=== PATIENT | female | born 2000 | race Caucasian/White ===

== ENCOUNTER 2018-05-02 17:37 | Emergency (ER) | payer MEDICAID ==
[~2018-05-02] VITALS: Ht 160 cm; Wt 71.7 kg
[2018-05-02 17:51] VITALS: Ht 160 cm; Wt 71.7 kg
[2018-05-02 20:22] LABS: microscopic required? NO
[2018-05-02 20:31] LABS: UA SPECIFIC GRAVITY 1.015 (1.005-1.035); urine erythrocyte NEGATIVE (NEGATIVE)
[2018-05-02 20:57] LABS: BASOPHIL % 0.4 % (0-2); PLATELET COUNT 292 x10^3mcL (130-400)
[2018-05-02 20:59] LABS: RED CELL DISTRIBUTION WIDTH 17.4 % (11.5-14.5)
[2018-05-02 22:39] VITALS: BP 120/74
== END 2018-05-02 22:39 | disposition home or self-care (01) ==
LOC: ED 17:37
PROVIDERS: Emergency Medicine
DX: O20.0 Threatened abortion (principal); R10.30 Lower abdominal pain, unspecified
CPT/HCPCS: 36415

== ENCOUNTER 2018-06-26 00:06 | Emergency (ER) | payer MEDICAID ==
[~2018-06-26] VITALS: Ht 157.5 cm; Wt 73.0 kg
[2018-06-26 00:10] VITALS: Ht 157.5 cm; Wt 73.0 kg
[2018-06-26 01:28] LABS: BASOPHIL % 0.5 % (0-2); PLATELET COUNT 341 x10^3mcL (130-400)
[2018-06-26 02:18] LABS: ALBUMIN 3.5 g/dL (3.4-5.0); ALKALINE PHOSPHATASE 71 U/L (46-116); ALT/SGPT 20 U/L (14-59); AMYLASE 59 U/L (25-115); AST/SGOT 12 U/L (15-37); BILIRUBIN TOTAL 0.1 mg/dL (0.20-1.00); LIPASE 90 IU/L (73-393); TOTAL PROTEIN, SERUM 7.7 g/dL (6.4-8.2)
[2018-06-26 02:34] LABS: CALCIUM 8.2 mg/dL (8.5-10.1); CARBON DIOXIDE 22.2 mmol/L (21-32); CHLORIDE SERUM 105 mmol/L (98-107); CREATININE SERUM 0.6 mg/dL (0.6-1.0); GFR1 > 60 mL/min; GLUCOSE SERUM 92 mg/dL (74-106); POTASSIUM SERUM 3.6 mmol/L (3.5-5.1); SODIUM SERUM 139 mmol/L (136-145)
[2018-06-26 02:53] VITALS: BP 111/73
== END 2018-06-26 03:18 | disposition home or self-care (01) ==
LOC: ED 00:06
PROVIDERS: Specialist
DX: N83.8 Other noninflammatory disorders of ovary, fallopian tube and broad ligament (principal)
CPT/HCPCS: J1885; J7030; Q0092

== ENCOUNTER 2018-08-07 16:01 | Emergency (ER) | payer MEDICAID ==
[~2018-08-07] VITALS: Ht 160 cm; Wt 73.5 kg
[2018-08-07 16:08] VITALS: BP 133/83; Ht 160 cm; Wt 73.5 kg
== END 2018-08-07 16:58 | disposition left against medical advice (07) ==
LOC: ED 16:01
DX: Z53.21 Procedure and treatment not carried out due to patient leaving prior to being seen by health care provider (principal)

== ENCOUNTER 2018-11-14 02:41 | Emergency (ER) | payer MEDICAID ==
[~2018-11-14] VITALS: Ht 160 cm; Wt 77.1 kg
[2018-11-14 02:45] VITALS: Ht 160 cm; Wt 77.1 kg
[2018-11-14 03:45] VITALS: BP 128/68
== END 2018-11-14 03:45 | disposition home or self-care (01) ==
LOC: ED 02:41
DX: N30.91 Cystitis, unspecified with hematuria (principal); B37.9 Candidiasis, unspecified; N39.0 Urinary tract infection, site not specified

== ENCOUNTER 2019-01-14 01:23 | Emergency (ER) | payer MEDICAID ==
[~2019-01-14] VITALS: Ht 160 cm; Wt 78.5 kg
[2019-01-14 02:49] LABS: CALCIUM 8.3 mg/dL (8.5-10.1); CARBON DIOXIDE 25.9 mmol/L (21-32); CHLORIDE SERUM 106 mmol/L (98-107); CREATININE SERUM 0.7 mg/dL (0.6-1.0); GFR1 > 60 mL/min; GLUCOSE SERUM 106 mg/dL (74-106); POTASSIUM SERUM 3.6 mmol/L (3.5-5.1); SODIUM SERUM 139 mmol/L (136-145)
[2019-01-14 02:51] LABS: BASOPHIL % 0.3 % (0-2); PLATELET COUNT 250 x10^3mcL (130-400); RED CELL DISTRIBUTION WIDTH 16.5 % (11.5-14.5)
[2019-01-14 02:53] LABS: ALBUMIN 3.5 g/dL (3.4-5.0); ALKALINE PHOSPHATASE 75 U/L (46-116); ALT/SGPT 22 U/L (14-59); AST/SGOT 15 U/L (15-37); BILIRUBIN TOTAL 0.13 mg/dL (0.20-1.00); LIPASE 76 IU/L (73-393); TOTAL PROTEIN, SERUM 6.8 g/dL (6.4-8.2)
[2019-01-14 04:16] VITALS: BP 117/77
== END 2019-01-14 04:16 | disposition home or self-care (01) ==
LOC: ED 01:23
PROVIDERS: Emergency Medicine
DX: R10.2 Pelvic and perineal pain (principal)
CPT/HCPCS: 36415

== ENCOUNTER 2019-07-06 18:09 | Emergency (ER) | payer MEDICAID ==
[~2019-07-06] VITALS: Ht 160 cm; Wt 86.6 kg
[2019-07-06 18:19] VITALS: Ht 160 cm; Wt 86.6 kg
[2019-07-06 20:32] LABS: BASOPHIL % 0.5 % (0-2); PLATELET COUNT 262 x10^3mcL (130-400)
[2019-07-06 20:42] LABS: RED CELL DISTRIBUTION WIDTH 15.6 % (11.5-14.5)
[2019-07-06 20:51] LABS: CALCIUM 8.7 mg/dL (8.5-10.1); CARBON DIOXIDE 29.5 mmol/L (21-32); CHLORIDE SERUM 106 mmol/L (98-107); CREATININE SERUM 0.7 mg/dL (0.6-1.0); GFR1 > 60 mL/min; GLUCOSE SERUM 89 mg/dL (74-106); SODIUM SERUM 141 mmol/L (136-145)
[2019-07-06 21:07] LABS: ALBUMIN 3.5 g/dL (3.4-5.0); ALKALINE PHOSPHATASE 73 U/L (46-116); ALT/SGPT 27 U/L (14-59); AST/SGOT 22 U/L (15-37); BILIRUBIN TOTAL 0.17 mg/dL (0.20-1.00); CHOLESTEROL 144 mg/dL (<200); HDL CHOLESTEROL 47 mg/dL (40-60); LIPASE 21 IU/L (73-393); T4(THYROXINE) 6.4 ug/dL (4.7-13.3); TOTAL PROTEIN, SERUM 7.7 g/dL (6.4-8.2)
[2019-07-06 21:22] LABS: microscopic required? YES; urine erythrocyte NEGATIVE (NEGATIVE)
[2019-07-06 21:33] LABS: AMPHETAMINE QUAL UR NONE DETECTED (See below)
[2019-07-06 22:47] VITALS: BP 127/67
== END 2019-07-06 23:44 | disposition home or self-care (01) ==
LOC: ED 18:09
PROVIDERS: Emergency Medicine
DX: R53.83 Other fatigue (principal); R53.1 Weakness; E66.9 Obesity, unspecified; R42 Dizziness and giddiness; R51 Headache; Z68.33 Body mass index [BMI] 33.0-33.9, adult
CPT/HCPCS: 36415

== ENCOUNTER 2019-10-26 23:12 | Emergency (ER) | payer MEDICAID ==
[~2019-10-26] VITALS: Ht 160 cm; Wt 83.6 kg
[2019-10-26 23:34] VITALS: Ht 160 cm; Wt 83.6 kg
[2019-10-27 01:53] VITALS: BP 111/74
== END 2019-10-27 01:53 | disposition home or self-care (01) ==
LOC: ED 23:12
DX: K62.5 Hemorrhage of anus and rectum (principal)

== ENCOUNTER 2020-07-30 19:43 | Emergency (ER) | payer MEDICAID ==
[~2020-07-30] VITALS: Ht 160 cm; Wt 74.4 kg
[2020-07-30 19:56] VITALS: BP 130/96; Ht 160 cm; Wt 74.4 kg
== END 2020-07-30 21:20 | disposition left against medical advice (07) ==
LOC: ED 19:43
DX: Z53.21 Procedure and treatment not carried out due to patient leaving prior to being seen by health care provider (principal)

== ENCOUNTER 2020-11-17 11:48 | Emergency (ER) | payer MEDICAID ==
[~2020-11-17] VITALS: Ht 160 cm; Wt 77.1 kg
[2020-11-17 12:01] VITALS: BP 122/77; Ht 160 cm; Wt 77.1 kg
[2020-11-17] MEDS ORDERED: ACETAMINOPHEN-H1 TA1 PO (12:56)
[2020-11-17] MEDS ORDERED: NAPROXEN375 MG PO (12:56)
[2020-11-17] MEDS ORDERED: SOMA350 MG PO (12:56)
== END 2020-11-17 13:07 | disposition home or self-care (01) ==
LOC: ED 11:48
DX: R10.9 Unspecified abdominal pain (principal)
CPT/HCPCS: J1885